=== PATIENT | male | born 1975 | race African-American/Black ===

== ENCOUNTER 2018-01-09 21:27 | Emergency (ER) | payer OTHER ==
[~2018-01-09] VITALS: Ht 177.8 cm; Wt 227.2 kg
[2018-01-09 21:34] VITALS: Ht 177.8 cm; Wt 227.2 kg
[2018-01-09 23:33] VITALS: BP 133/101
== END 2018-01-09 23:33 | disposition home or self-care (01) ==
LOC: ED 21:27
DX: G89.29 Other chronic pain (principal); M79.672 Pain in left foot; M25.561 Pain in right knee; M54.31 Sciatica, right side
CPT/HCPCS: J1885